=== PATIENT | female | born 1990 | race Hispanic/Latino ===

== ENCOUNTER 2018-06-27 19:12 | Emergency (ER) | payer MEDICARE, OTHER ==
[2018-06-27 19:47] VITALS: TEMP 98.9; BMI 43.6
[2018-06-27 21:52] LABS: BASO # 0.01 K/mm3 (0.0-2.0); BASO % 0.1 % (0.0-3.0); EOS # 0.1 (0.0-0.7); EOS % 0.5 % (1.5-5.0); GRAN # 12.12 (1.4-6.5); GRAN % 80.9 % (50.0-68.0); HEMOGLOBIN 12.9 g/dL (12.0-16.0); LYMPH % 13.2 % (22.0-35.0); MEAN CELL VOLUME 82.5 fl (80.0-105.0); MEAN CORPUSCULAR HEMOGLOBIN 26.8 pg (25.0-35.0); MEAN CORPUSCULAR HGB CONC 32.5 g/dl (31.0-37.0); MEAN PLATELET VOLUME 9.9 fl (7.0-11.0); MONO # 0.8 (0.1-0.6); MONO % 5.3 % (1.0-6.0); RBC 4.81 10^6/uL (3.5-6.1); RED CELL DISTRIBUTION WIDTH 13.2 % (11.5-14.5)
--- NOTE | 2018-06-27 22:00 | ED PDOC ---
Arrival/HPI <Ricardo Callejas - Last Filed: 06/27/18 22:33> - General Historian: Patient - History of Present Illness Narrative History of Present Illness (Text): 06/27/18 21:45 28 year old female, whose past medical history includes asthma, presents to the emergency department complaining of painful, burning, and hot rash to the both palms of her hands. She reports she was recently sick, >1 week ago with possible strep infection and took Amoxicillin (which she is not allergic to) which she reports she completed the course. Patient states that her children were also sick with flu/strep infection. Patient denies any recent travel, tick bites, h/o being outdoors/in the park/forest. Patient otherwise denies any fever, chills, sore throat, URI symptoms, trouble breathing, shortness of breath, nausea, vomiting, joint pain, muscle pain, weakness, fatigue, numbness, using any new soaps/lotions/medications/food, or any other complaints. PMD: Dr. Jose Miller <Cesia Dee PA-C - Last Filed: 06/27/18 22:43> - General Chief Complaint: Abnormal Skin Integrity Time Seen by Provider: 06/27/18 19:19 Past Medical History - Provider Review Nursing Documentation Reviewed: Yes - Travel History Have you recently traveled outside [place] w/in the past 3 mons?: No - Infectious Disease Hx of Infectious Diseases: None - Pulmonary Hx Asthma: Yes - Psychiatric Hx Substance Use: No - Suicidal Assessment Feels Threatened In Home Enviroment: No <Cesia Dee PA-C - Last Filed: 06/27/18 22:43> Family/Social History - Physician Review Nursing Documentation Reviewed: Yes Family/Social History: No Known Family HX Smoking Status: Never Smoked Hx Alcohol Use: No Hx Substance Use: No <Cesia Dee PA-C - Last Filed: 06/27/18 22:43> Allergies/Home Meds <Ricardo Callejas - Last Filed: 06/27/18 22:33> <Cesia Dee PA-C - Last Filed: 06/27/18 22:43> Allergies/Adverse Reactions: Allergies No Known Allergies Allergy (Unverified 01/05/14 14:12) Home Medications: Home Meds Medication Instructions Recorded Confirmed Albuterol 01/05/14 01/05/14 Ibuprofen 01/05/14 01/05/14 Review of Systems - Physician Review All systems were reviewed & negative as marked: Yes - Review of Systems Constitutional: absent: Fevers, Other (Chills) ENT: absent: Sore Throat, Rhinorrhea, Other (trouble breathing) Respiratory: absent: SOB, Cough Gastrointestinal: absent: Abdominal Pain, Nausea, Vomiting Skin: Rash <Cesia Dee PA-C - Last Filed: 06/27/18 22:43> Physical Exam Vital Signs Temp Pulse Resp BP Pulse Ox 06/27/18 19:42 98.9 F 114 H 18 127/84 98 <Ricardo Callejas - Last Filed: 06/27/18 22:33> Vital Signs Reviewed: Yes Vital Signs Temp Pulse Resp BP Pulse Ox 06/27/18 19:42 98.9 F 114 H 18 127/84 98 Temperature: Afebrile Blood Pressure: Normal Pulse: Tachycardic Respiratory Rate: Normal Appearance: Positive for: Well-Appearing, Non-Toxic, Comfortable Pain Distress: None Mental Status: Positive for: Alert and Oriented X 3 - Systems Exam Head: Present: Atraumatic, Normocephalic Pupils: Present: PERRL Extroacular Muscles: Present: EOMI Conjunctiva: Present: Normal Ears: Present: Normal, NORMAL TM. No: Erythema Mouth: Present: Moist Mucous Membranes Pharnyx: Present: Normal, Other (no lesions to the oral mucosa). No: ERYTHEMA, EXUDATE Neck: Present: Normal Range of Motion. No: Meningeal Signs, Lymphadenopathy Respiratory/Chest: Present: Clear to Auscultation, Good Air Exchange. No: Respiratory Distress, Accessory Muscle Use Cardiovascular: Present: Regular Rate and Rhythm, Normal S1, S2. No: Murmurs Neurological: Present: GCS=15, CN II-XII Intact, Speech Normal, Motor Func Grossly Intact, Normal Sensory Function, Gait Normal Skin: Present: Warm, Dry, Rashes (two oval shaped erythematous flat non-tender rash, both of varying size with central clearing, noted to b/l palms ), Normal Color Psychiatric: Present: Alert, Oriented x 3, Normal Insight, Normal Concentration <Cesia Dee PA-C - Last Filed: 06/27/18 22:43> Medical Decision Making - Lab Interpretations Lab Results: 06/27/18 21:48 06/27/18 21:48 Lab Results 06/27/18 21:49: Infectious [place] Assay Cancelled, Grp A Beta Strep Ag Negative 06/27/18 21:48: Sodium 139, Potassium 4.0, Chloride 103, Carbon Dioxide 25, Anion Gap 15, BUN 12, Creatinine 0.6 L, Est GFR ( Amer) > 60, Est GFR (Non-Af Amer) > 60, Random Glucose 114 H, Calcium 9.2, Total Bilirubin 0.5, AST 30, ALT 44, Alkaline Phosphatase 88, Total Protein 8.0, Albumin 4.4, Globulin 3.6, Albumin/Globulin Ratio 1.2 06/27/18 21:48: WBC 15.0 H, RBC 4.81, Hgb 12.9, Hct 39.7, MCV 82.5, MCH 26.8, MCHC 32.5, RDW 13.2, Plt Count 289, MPV 9.9, Gran % 80.9 H, Lymph % (Auto) 13.2 L, [place] % (Auto) 5.3, Eos % (Auto) 0.5 L, Baso % (Auto) 0.1, Gran # 12.12 H, Lymph # (Auto) 2.0, [place] # (Auto) 0.8 H, Eos # (Auto) 0.1, Baso # (Auto) 0.01 <Ricardo Callejas - Last Filed: 06/27/18 22:33> ED Course and Treatment: 06/27/18 22:00 Impression: 28 year old female presents complaining of painful, burning, hot rash to both palms about oval shaped. PE shows two oval shaped erythematous rash with central clearing. Plan: -- Labs -- Infectious monibucleosis, Rapid Strep -- Reassess and disposition Prior Visits: Notes and results from previous visits were reviewed. Progress Notes: Labs reviewed : wbc 15, monoscreen and lyme titer is a send out, as per lab. On reevaluation, patient remains awake alert and oriented 3 in no acute distress, denies any fever. Patient notified of results and pending monoscreen and lyme titer. Advised that she will be called for any (+) results. Advised to follow up with primary care physician and derm referral in 1-2 days without fail. Return to the emergency room at any time for any new or worsening symptoms. Patient states she fully agrees with and understands discharge instructions. States that she agrees with the plan and disposition. Verbalized and repeated discharge instructions and plan. I have given the patient opportunity to ask any additional questions. - Lab Interpretations Lab Results: 06/27/18 21:48 Lab Results 06/27/18 21:48: WBC 15.0 H, RBC 4.81, Hgb 12.9, Hct 39.7, MCV 82.5, MCH 26.8, MCHC 32.5, RDW 13.2, Plt Count 289, MPV 9.9, Gran % 80.9 H, Lymph % (Auto) 13.2 L, [place] % (Auto) 5.3, Eos % (Auto) 0.5 L, Baso % (Auto) 0.1, Gran # 12.12 H, Lymph # (Auto) 2.0, [place] # (Auto) 0.8 H, Eos # (Auto) 0.1, Baso # (Auto) 0.01 <Cesia Dee PA-C - Last Filed: 06/27/18 22:43> - PA / WAIST CUTTER / Resident Statement MEGGAN has reviewed & agrees with the documentation as recorded. MEGGAN has examined the patient and agrees with the treatment plan. <Ricardo Callejas - Last Filed: 06/27/18 22:33> - PA / WAIST CUTTER / Resident Statement MEGGAN has reviewed & agrees with the documentation as recorded. - Scribe Statement The provider has reviewed the documentation as recorded by the Rohan Espinosa Provider Scribe Attestation: All medical record entries made by the Rohan were at my direction and personally dictated by me. I have reviewed the chart and agree that the record accurately reflects my personal performance of the history, physical exam, medical decision making, and the department course for this patient. I have also personally directed, reviewed, and agree with the discharge instructions and disposition. <Cesia Dee PA-C - Last Filed: 06/27/18 22:43> Disposition/Present on Arrival <Ricardo Callejas - Last Filed: 06/27/18 22:33> - Present on Arrival Any Indicators Present on Arrival: No History of DVT/PE: No History of Uncontrolled Diabetes: No Urinary Catheter: No History of Decub. Ulcer: No History Surgical Site Infection Following: None - Disposition Have Diagnosis and Disposition been Completed?: Yes Disposition Time: 22:30 Patient Plan: Discharge <Ceisa Dee PA-C - Last Filed: 06/27/18 22:43> - Disposition Diagnosis: Rash Disposition: HOME/ ROUTINE Patient Problems: Current Active Problems Problem Status Onset Rash Acute Condition: STABLE Discharge Instructions (ExitCare): Skin Rash (DC) Additional Instructions: Thank you for letting us take care of you today. You were treated for rash. The emergency medical care you received today was directed at your acute symptoms. Return to the Emergency Department if your symptoms worsen, do not improve, or if you have any other problems. Please contact your doctor in 2 days for re-evaluation and follow up / or call one of the physicians/clinics you have been referred to that are listed on the Patient Visit Information form that is included in your discharge packet. Bring any paperwork you were given at discharge with you along with any medications you are taking to your follow up visit. Our treatment cannot replace ongoing medical care by a primary care provider (PCP) outside of the emergency department. Thank you for allowing the [facility] team to be part of your care today. You had a monoscreen test and a lyme titer ordered, if any of these test are positive, we will contact you Referrals: Angela Mclean MD [Primary Care Provider] - Follow up with primary Erasto Coy MD [Staff Provider] - Follow up with primary Forms: [employer] ([place]), WORK NOTE
[2018-06-27 22:04] LABS: ALB/GLOB RATIO 1.2 (1.1-1.8); ALBUMIN 4.4 g/dL (3.0-4.8); ALT/SGPT 44 U/L (7-56); AST/SGOT 30 U/L (14-36); BLOOD UREA NITROGEN 12 mg/dL (7-21); CALCIUM 9.2 mg/dL (8.4-10.5); GFR NON-AFRICAN AMERICAN > 60
[2018-06-28 02:18] VITALS: BP 116/86; PULSE 89; RESP 17; O2SAT 99
[2018-07-01 08:14] LABS: 23 KD (IGG) BAND Nonreactive
== END 2018-06-27 22:38 | disposition home or self-care (01) ==
LOC: ED 19:12
DX: R21 Rash and other nonspecific skin eruption (principal)

== ENCOUNTER 2018-07-11 01:42 | Emergency (ER) | payer MEDICARE, OTHER ==
[2018-07-11 01:43] VITALS: BMI 38.6
[2018-07-11] MEDS ORDERED: DiphenhydrAMINE 50 mg/ml Inj IVP ONE (02:21)
[2018-07-11] MEDS ORDERED: Albuterol-Ipratrop 3 mg / 0.5 (3 ml) UD IH STA (02:21)
--- NOTE | 2018-07-11 02:26 | ED PDOC ---
Arrival/HPI - General Chief Complaint: Shortness Of Breath Time Seen by Provider: 07/11/18 02:19 Historian: Patient - History of Present Illness Narrative History of Present Illness (Text): 07/11/18 02:21 Jane Rose is a 28 year old female, whose past medical history includes asthma, who presents to the Emergency department complaining of an allergic reaction. Patient states she began experiencing some shortness of breath, hives, and some throat fullness yesterday evening. Patient notes she ate pizza yesterday evening, which may have triggered the reaction. Patient denies any fever, chills, chest pain, nausea, vomiting, pain, headache, dizziness, or any other complaints. Symptom Onset: Gradual Symptom Course: Unchanged Activities at Onset: Light Context: Home Past Medical History - Provider Review Nursing Documentation Reviewed: Yes - Infectious Disease Hx of Infectious Diseases: None - Pulmonary Hx Asthma: Yes - Psychiatric Hx Substance Use: No - Anesthesia Hx Anesthesia: No Hx Anesthesia Reactions: No Hx Malignant Hyperthermia: No - Suicidal Assessment Feels Threatened In Home Enviroment: No Family/Social History - Physician Review Nursing Documentation Reviewed: Yes Family/Social History: Unknown Family HX Smoking Status: Never Smoked Hx Alcohol Use: No Hx Substance Use: No Allergies/Home Meds Allergies/Adverse Reactions: Allergies No Known Allergies Allergy (Unverified 01/05/14 14:12) Home Medications: Home Meds Medication Instructions Recorded Confirmed Albuterol 01/05/14 01/05/14 Ibuprofen 01/05/14 01/05/14 Review of Systems - Physician Review All systems were reviewed & negative as marked: Yes - Review of Systems Constitutional: Normal. absent: Fevers Eyes: Normal ENT: Other (+throat fullness) Respiratory: SOB. absent: Cough Cardiovascular: Normal. absent: Chest Pain Gastrointestinal: Normal. absent: Abdominal Pain, Diarrhea, Nausea, Vomiting Genitourinary Female: Normal. absent: Dysuria, Frequency, Hematuria, Urine Output Changes Musculoskeletal: Normal. absent: Back Pain, Neck Pain Skin: Rash Neurological: Normal. absent: Headache, Dizziness Endocrine: Normal Hemo/Lymphatic: Normal Psychiatric: Normal Physical Exam Vital Signs Reviewed: Yes Vital Signs Temp Pulse Resp BP Pulse Ox 07/11/18 01:43 97.7 F 94 H 18 129/83 96 Temperature: Afebrile Blood Pressure: Normal Pulse: Regular Respiratory Rate: Normal Appearance: Positive for: Well-Appearing, Non-Toxic, Comfortable Pain Distress: None Mental Status: Positive for: Alert and Oriented X 3 - Systems Exam Head: Present: Atraumatic, Normocephalic Pupils: Present: PERRL Extroacular Muscles: Present: EOMI Conjunctiva: Present: Normal Mouth: Present: Moist Mucous Membranes Neck: Present: Normal Range of Motion Respiratory/Chest: Present: Clear to Auscultation, Good Air Exchange. No: Respiratory Distress, Accessory Muscle Use Cardiovascular: Present: Regular Rate and Rhythm, Normal S1, S2. No: Murmurs Abdomen: No: Tenderness, Distention, Peritoneal Signs Back: Present: Normal Inspection Upper Extremity: Present: Normal Inspection. No: Cyanosis, Edema Lower Extremity: Present: Normal Inspection. No: Edema Neurological: Present: GCS=15, CN II-XII Intact, Speech Normal Skin: Present: Warm, Dry, Rashes (Urticaria to chest), Normal Color Psychiatric: Present: Alert, Oriented x 3, Normal Insight, Normal Concentration Medical Decision Making ED Course and Treatment: 07/11/18 02:21 Impression: 28 year old female complaining of shortness of breath, hives, and throat fullness after eating pizza yesterday. Plan: -- EKG -- Duoneb -- Benadryl -- Solu-medrol -- Pepcid -- Reassess and disposition Progress Notes: Reviewed EKG, NSR at [address]-segment elevations or depressions, no T-wave inversions, normal intervals. - EKG Interpretation Interpreted by ED Physician: Yes Type: 12 lead EKG - Scribe Statement The provider has reviewed the documentation as recorded by the Rohan Wick Provider Scribe Attestation: All medical record entries made by the Scribe were at my direction and personally dictated by me. I have reviewed the chart and agree that the record accurately reflects my personal performance of the history, physical exam, medical decision making, and the department course for this patient. I have also personally directed, reviewed, and agree with the discharge instructions and disposition. Disposition/Present on Arrival - Present on Arrival Any Indicators Present on Arrival: No History of DVT/PE: No History of Uncontrolled Diabetes: No Urinary Catheter: No History of Decub. Ulcer: No History Surgical Site Infection Following: None - Disposition Have Diagnosis and Disposition been Completed?: Yes Diagnosis: Allergic reaction, Urticaria Disposition: HOME/ ROUTINE Disposition Time: 05:19 Patient Plan: Discharge Condition: GOOD Additional Instructions: Take meds as prescribed/follow up with your doctor this week Prescriptions: DiphenhydrAMINE [Benadryl] 50 mg PO Q6 PRN #24 cap PRN Reason: Itching / Pruritus predniSONE [Prednisone] 40 mg PO DAILY #10 tab Albuterol HFA [Ventolin HFA 90 mcg/actuation (8 g)] 2 puff IH [id number] PRN #1 puff PRN Reason: Wheezing Forms: [facility] (Russian)
[2018-07-11] MEDS ORDERED: Albuterol-Ipratrop 3 mg / 0.5 (3 ml) UD ONE (02:49)
[2018-07-11 05:31] VITALS: BP 127/73; PULSE 87; RESP 16; TEMP 98; O2SAT 98
--- NOTE | 2018-07-12 11:15 | CARD ---
APPROVED REPORT Date of service: 07/11/2018 EKG Measurement Heart [id number] <Conclusion> Normal sinus rhythm Normal ECG
== END 2018-07-11 05:29 | disposition home or self-care (01) ==
LOC: ED 01:42
DX: T78.40XA Allergy, unspecified, initial encounter (principal); X58.XXXA Exposure to other specified factors, initial encounter; L50.9 Urticaria, unspecified
CPT/HCPCS: 93005; 96374; 96375; 99284; J1200; J2930